=== PATIENT | male | born 1940 | race Caucasian/White ===

== ENCOUNTER → 2018-03-15 | Outpatient (CLI) | payer OTHER | LOC: CAT 10:44 | DX: M47.814 Spondylosis without myelopathy or radiculopathy, thoracic region (principal); M48.04 Spinal stenosis, thoracic region; R22.2 Localized swelling, mass and lump, trunk ==

== ENCOUNTER 2018-03-24 05:30 | Day surgery (SDC) | payer OTHER ==
[~2018-03-24] VITALS: Ht 160 cm; Wt 70.8 kg
--- NOTE | ~2018-03-24 | EKG ---
[address] [address] ELECTROCARDIOGRAM REPORT Name: INDIA CARRASQUILLO Room #: 150-9 [id number] Admission: 03/24/18 Attend Phys: Joaquin Grewal, Discharge: Date of : 42 Report #: [id number] THIS REPORT FOR: //name// [facility] Test Date: 2018-03-24 Test Time: 06:40:22 Pat Name: INDIA CARRASQUILLO Department: Room: 150 9 Gender: M [employer]: DIOR : 1940 Requested By: Joaquin Grewal Order Number: [id number] MD: Louie Wilson Measurements Intervals [place] Rate: 60 P: 68 [place]: 185 QRS: 65 QRSD: 89 T: 63 QT: 415 QTc: 415 Interpretive Statements Sinus rhythm Baseline wander in lead(s) V4,V5,V6 No previous ECG available for comparison Electronically Signed On 03-24-2018 8:12:36 [employer] by Louie Wilson [email or web address] <ELECTRONICALLY SIGNED> By: Louie Wilson MD, [facility] 03/24/1812 0640 0640 Louie Wilson MD, FACC /EPI
[~2018-03-24 05:30] MED LIST: CBD OIL SUBLING; FLOMAX0.4 MG PO; IBUPROFEN 400400 M2 PO; LIPITOR 20 MG T20 M1 PO; MOBIC15 MG PO; NEURONTIN 300300 M1 PO; NORCO 7.5-3251 EACH PO; PRILOSEC OTC20 MG PO
[2018-03-24 07:30] VITALS: BP 124/49
== END 2018-03-24 09:56 | disposition home or self-care (01) ==
LOC: OR 05:30 → TBA 05:30 → OR 09:46
DX: M96.1 Postlaminectomy syndrome, not elsewhere classified (principal); M47.897 Other spondylosis, lumbosacral region; M54.41 Lumbago with sciatica, right side; M19.90 Unspecified osteoarthritis, unspecified site; E11.9 Type 2 diabetes mellitus without complications; N40.0 Benign prostatic hyperplasia without lower urinary tract symptoms; E78.00 Pure hypercholesterolemia, unspecified; K21.9 Gastro-esophageal reflux disease without esophagitis; F17.210 Nicotine dependence, cigarettes, uncomplicated; Z98.41 Cataract extraction status, right eye; Z79.899 Other long term (current) drug therapy; Z79.891 Long term (current) use of opiate analgesic; Z98.890 Other specified postprocedural states; Z98.42 Cataract extraction status, left eye
CPT/HCPCS: 50010; 50101; 50386; 50417; 56524; 56526; 57196; 57197; 57198; 57199; 57200; 57201; 62110; 62850; 70005